=== PATIENT | female | born 1930 | race Caucasian/White ===

== ENCOUNTER 2019-06-27 13:15 | Outpatient (CLI) | payer OTHER ==
[2014-10-17 14:13] VITALS: BP 125/54
[2019-07-08 14:24] LABS: APPEARANCE,URINE CLEAR (CLEAR); COLOR,URINE YELLOW (YELLOW); OCCULT BLOOD,URINE NEGATIVE (NEGATIVE); PH URINE 7.5 (5.0 - 8.0)
[2019-07-08 14:25] LABS: BASOPHILS % 0.5 % (0.0-1.5); NEUTROPHILS # 8.8 # k/uL (1.4-7.7); UROBILINOGEN URINE 0.2 Eu (0.2-1.0); eGFR (Non-African) 23
== END 2019-06-27 13:30 ==
LOC: LAB 13:15
PROVIDERS: ATTEND Family Medicine
DX: I48.91 Unspecified atrial fibrillation (principal); N39.0 Urinary tract infection, site not specified; E87.0 Hyperosmolality and hypernatremia
CPT/HCPCS: 36415; 80053; 81002; 85025

== ENCOUNTER 2019-07-04 08:30 | Outpatient (CLI) | payer OTHER ==
[2014-10-17 14:13] VITALS: BP 125/54
[2019-07-16 17:55] LABS: eGFR (Non-African) 39
== END 2019-07-04 08:40 ==
LOC: LAB 08:30
PROVIDERS: ATTEND Family Medicine
DX: E11.9 Type 2 diabetes mellitus without complications (principal); I48.91 Unspecified atrial fibrillation; E87.1 Hypo-osmolality and hyponatremia
CPT/HCPCS: 36415; 80053

== ENCOUNTER 2019-07-08 16:53 | Outpatient (CLI) | payer OTHER ==
[2014-10-17 14:13] VITALS: BP 125/54
== END 2019-07-08 16:58 ==
LOC: LAB 16:53
PROVIDERS: ATTEND Family Medicine
DX: N17.9 Acute kidney failure, unspecified (principal); R60.9 Edema, unspecified
CPT/HCPCS: 83880